=== PATIENT | male | born 1985 | race Caucasian/White ===

== ENCOUNTER → 2017-04-18 | Day surgery (SDC) | payer OTHER ==
[~2017-04-18] MED LIST: AMOXICILLIN125 MG PO; FLEXERIL PO; IBUPROFEN PO; IMODIUM2 MG PO; LEVOXYL150 MCG PO; MULTI VITAMIN1 EACH; NAPROSYN500 MG PO; PREDNISONE1 MG PO; PRILOSEC PO; RHINOCORT AQUA8.6 GM; ULTRAM PO; VITAMIN D-32000 UNI2 PO
--- NOTE | ~2017-04-18 | EKG ---
PATIENT: SUNI WHITFIELD UNIT #: [id number] Ventricular Rate: 69 BPM Atrial Rate: 69 BPM P-R Interval: 180 ms QRS Duration: 90 ms Q-T Interval: 388 ms QTC Calculation(Bezet): 415 ms P [place]: 47 degrees Calculated R [place]: 18 degrees Calculated T [place]: 26 degrees Diagnosis Line: Normal sinus rhythm with sinus arrhythmia Diagnosis Line: Normal ECG Diagnosis Line: No previous ECGs available Diagnosis Line: Confirmed by IONA BRAXTON MD ([id number]) on Diagnosis Line: 04/19/2017 8:47:18 AM INTERPRETING MD: FOX AHMADI
--- NOTE | ~2017-04-18 | OR ---
Unit #: [id number] #: [id number] Patient: SUNI WHITFIELD JR [id number] [address] [place], [place] [address] [id number] O MR#: [id number] NAME: SUNI WHITFIELD JR ROOM: Date of Procedure: 04/18/2017 Admission Date: 04/18/2017 Surgeon: Terry Gentile M.D. : 1985 Attending Physician: Terry Gentile M.D. Primary Care Physician: Galdino Rich M.D. OPERATIVE REPORT PREOPERATIVE DIAGNOSES 1. Nasal obstruction. 2. Septal deviation. 3. Inferior turbinate hypertrophy bilaterally. POSTOPERATIVE DIAGNOSES 1. Nasal obstruction. 2. Septal deviation. 3. Inferior turbinate hypertrophy bilaterally. PROCEDURES PERFORMED 1. Septoplasty. 2. Submucous resections of bilateral inferior turbinates. ANESTHESIA General endotracheal anesthesia. COMPLICATIONS None. FINDINGS Included severe septal deviation to the left with inferior turbinate hypertrophy right greater than left. HISTORY This is a 32-year-old male, who has had a long history of nasal obstruction. He presents today for septoplasty and turbinate reduction. DESCRIPTION OF PROCEDURE The patient was placed supine on the operating table. Anesthesia was achieved by general endotracheal anesthesia. The patient was prepped and draped for septoplasty. 1% lidocaine was injected into the columella bilaterally as well as a hemitransfixion incision site on the left. A hemitransfixion incision was made with 15 blade and a submucoperichondrial flap was developed first on the left than on the right after transecting a portion of septal cartilage and anterior strut of cartilage was left present for support. Deviated portions of cartilage and bone were then removed with Ross forceps and a small amount of flattened cartilage was replaced at the midline. Prior to this, septoplasty was closed with 4-0 plain gut mattress stitch. A 4-0 chromic interrupted was used to close the hemitransfixion incision on the left and then the inferior turbinates were reduced with [employer] reduction blade in a submucous Unit #: [id number] #: [id number] Patient: SUNI WHITFIELD JR resection fashion, first on the left and then on the right and then the inferior turbinates were outfractured with a Boies elevator. Espinoza septal splints were then placed and secured with a 2-0 silk stitch. The patient was then awakened, transferred to Recovery in stable condition. Dictated by... Nadir Orta TD: 04/19/2017 07:51 JOB #: [id number] OPERATIVE REPORT Page 1 of 1 X Terry Gentile MD PROCEDURE OPERATIVE NOTE
[2017-04-18 11:23] LABS: ALBUMIN SERUM 3.9 g/dL (3.5-5.0); BILIRUBIN,TOTAL 1.1 mg/dL (0.2-2.0); CALCIUM SERUM 8.6 mg/dL (8.4-10.2); CREATININE SERUM 0.5 mg/dL (0.6-1.4); GLOM FILT RATE Estimated 145.5 mL/min (>60); POTASSIUM 3.9 mmol/L (3.5-5.1); PROTEIN TOTAL SERUM 6.5 g/dL (6.0-8.3)
== END | disposition home or self-care (01) ==
LOC: CSUR 09:30
PROVIDERS: Specialist
DX: J34.2 Deviated nasal septum (principal); J34.3 Hypertrophy of nasal turbinates; E03.9 Hypothyroidism, unspecified; K21.9 Gastro-esophageal reflux disease without esophagitis; J38.7 Other diseases of larynx; F45.8 Other somatoform disorders; F17.210 Nicotine dependence, cigarettes, uncomplicated; Z91.048 Other nonmedicinal substance allergy status; Z79.899 Other long term (current) drug therapy; Z98.890 Other specified postprocedural states
CPT/HCPCS: 80053; 93005; J0131; J0330; J1100; J2250; J2405; J2710; J3010

== ENCOUNTER → 2017-05-24 | Day surgery (SDC) | payer OTHER ==
--- NOTE | ~2017-05-24 | OR ---
Unit #: [id number] #: [id number] Patient: SUNI WHITFIELD JR [id number] [address] [place], [place] [address] [id number] O MR#: [id number] NAME: SUNI WHITFIELD JR ROOM: Date of Procedure: 05/24/2017 Admission Date: 05/24/2017 Surgeon: Heath Hardy M.D. : 1985 Attending Physician: Heath Hardy M.D. Primary Care Physician: Galdino Rich M.D. OPERATIVE REPORT PROCEDURE PERFORMED Colonoscopy with biopsies. INDICATIONS FOR PROCEDURE The patient with altered bowel habits with diarrhea, also with internal hemorrhoids. MEDICATIONS Monitored anesthesia. POSTOPERATIVE FINDINGS 1. Colonoscopy completed to cecum and terminal ileum. Mucosa was normal and healthy. Biopsy was taken randomly in colonic mucosa. 2. Small external hemorrhoids and small internal hemorrhoids. PLAN Consider surgical excision of the external hemorrhoids. DESCRIPTION OF PROCEDURE The patient was explained of the procedure, risks, and benefits along with the risks and benefits of anesthesia. He was brought to the endoscopy room. Propofol anesthesia was given. Rectal exam was done. An external skin tag felt at the anal canal. The scope was then lubricated, passed up the rectum, advanced under direct vision all the way to the cecum. Terminal ileum was intubated. The scope was then carefully withdrawn to the colonic mucosa, which was normal. Random biopsies were taken. I retroflexed in the rectum, small internal hemorrhoids noted. Gently, the scope was pulled out. He tolerated it well. Dictated by... Nadir Madden/ceci TD: 05/25/2017 01:36 JOB #: [id number] Unit #: [id number] #: [id number] Patient: SUNI WHITFIELD JR OPERATIVE REPORT Page 1 of 1 X Heath Hardy MD X PROCEDURE OPERATIVE NOTE
== END | disposition home or self-care (01) ==
LOC: COPS 08:33
DX: K64.8 Other hemorrhoids (principal); K64.4 Residual hemorrhoidal skin tags; E03.9 Hypothyroidism, unspecified; K21.9 Gastro-esophageal reflux disease without esophagitis; F17.210 Nicotine dependence, cigarettes, uncomplicated; Z79.899 Other long term (current) drug therapy; Z98.890 Other specified postprocedural states
CPT/HCPCS: 88305; J2250

== ENCOUNTER → 2017-06-13 | Day surgery (SDC) | payer OTHER ==
--- NOTE | ~2017-06-13 | EKG ---
PATIENT: SUNI WHITFIELD UNIT #: [id number] Ventricular Rate: 91 BPM Atrial Rate: 91 BPM P-R Interval: 158 ms QRS Duration: 100 ms Q-T Interval: 342 ms QTC Calculation(Bezet): 420 ms P [place]: 49 degrees Calculated R [place]: 14 degrees Calculated T [place]: 25 degrees Diagnosis Line: Normal sinus rhythm Diagnosis Line: Normal ECG Diagnosis Line: When compared with ECG of 18-APR-2017 10:15, Diagnosis Line: No significant change was found Diagnosis Line: Confirmed by IONA BRAXTON MD ([id number]) on Diagnosis Line: 06/14/2017 8:29:55 AM INTERPRETING MD: FOX AHMADI
--- NOTE | ~2017-06-13 | OR ---
Unit #: [id number] #: [id number] Patient: SUNI WHITFIELD JR [id number] [address] [place], [place] [address] [id number] O MR#: [id number] NAME: SUNI WHITFIELD JR ROOM: Date of Procedure: 06/13/2017 Admission Date: 06/13/2017 Surgeon: Jose Antonio Silvestre Jr., M.D. : 1985 Attending Physician: Jose Antonio Silvestre Jr., M.D. Primary Care Physician: Galdino Rich M.D. OPERATIVE REPORT INDICATIONS FOR PROCEDURE The patient is a 32-year-old white male with a large external hemorrhoidal tag, who has been bothered by this with intermittent bleeding, pain and itching. It was felt that he needed exam under anesthesia as well as external hemorrhoidectomy. He was brought in this time for this procedure. He understands the procedure including risks, including that of infection, poor healing, and recurrence and consents. PREOPERATIVE DIAGNOSIS Chronic external hemorrhoidal tag with hemorrhoiditis. POSTOPERATIVE DIAGNOSIS Chronic external hemorrhoidal tag with hemorrhoiditis, noting approximately 1.5 cm hemorrhoidal tag. ANESTHESIA General with endotracheal intubation, 0.5% Marcaine with epinephrine locally. PROCEDURE PERFORMED Exam under anesthesia with external hemorrhoidectomy x1. DESCRIPTION OF PROCEDURE The patient was positioned in supine position. After being anesthetized and intubated, was placed in prone position, prepped and draped in routine fashion in a sheri-knife position for hemorrhoidectomy. Perianal block was performed with 0.5% Marcaine with epinephrine and dilatation performed up to 3 fingerbreadths. There were some small external hemorrhoids, but no evidence of any significant internal hemorrhoids and there was a large external hemorrhoidal tag. It was then clamped at its base. 2-0 chromic suture was placed at the top apex of it and used to ligate. The internal portion of it was then excised and the 2-0 chromic stitch were run with a locking stitch from internal to external areas. After this was complete, the area was checked. There was no evidence of any other major hemorrhoids. The estimated blood loss was minimal. The patient received less than 500 mL crystalloid solution during the procedure. Sponges and instruments counts were correct x3. No drains used. No complications. The patient was discharged to the recovery area with stable vital signs in satisfactory condition. Dictated by... Unit #: [id number] #: [id number] Patient: SUNI WHITFIELD JR, Jr., MLarissa FRANKS/ceci TD: 06/14/2017 05:28 JOB #: [id number] OPERATIVE REPORT Page 1 of 1 X Jose Antonio Silvestre MD X PROCEDURE OPERATIVE NOTE
[2017-06-13 12:44] LABS: ALBUMIN SERUM 4.4 g/dL (3.5-5.0); BILIRUBIN,TOTAL 2.4 mg/dL (0.2-2.0); CALCIUM SERUM 9.1 mg/dL (8.4-10.2); CREATININE SERUM 0.6 mg/dL (0.6-1.4); POTASSIUM 3.4 mmol/L (3.5-5.1)
== END | disposition home or self-care (01) ==
LOC: CSUR 11:49
PROVIDERS: Surgery
DX: K64.4 Residual hemorrhoidal skin tags (principal); E03.9 Hypothyroidism, unspecified; K21.9 Gastro-esophageal reflux disease without esophagitis; F41.9 Anxiety disorder, unspecified; F17.210 Nicotine dependence, cigarettes, uncomplicated; Z79.899 Other long term (current) drug therapy; Z98.890 Other specified postprocedural states
CPT/HCPCS: 80053; 88305; 93005; J0330; J0690; J1885; J2250; J2270; J2405; J3010; J3370

== ENCOUNTER 2017-06-21 08:04 | Emergency (ER) | payer OTHER ==
[~2017-06-21] VITALS: Ht 188 cm; Wt 99.8 kg
== END 2017-06-21 09:20 | disposition left against medical advice (07) ==
LOC: CED 08:04
DX: Z53.21 Procedure and treatment not carried out due to patient leaving prior to being seen by health care provider (principal)